=== PATIENT | female | born 1990 | race Caucasian/White ===

== ENCOUNTER 2023-03-24 09:31 | Outpatient (CLI) | payer BC, SELFPAY | END 2023-03-24 09:32 | disposition home or self-care (01) | PROVIDERS: PCP Physician Assistant Medical; Visit Provider Physician Assistant Medical | DX: R74.01 Elevation of levels of liver transaminase levels (principal); G89.29 Other chronic pain; M54.41 Lumbago with sciatica, right side | CPT/HCPCS: 80053; 86039; 86140; 86200; 86431; 86703; 86803; 86812 ==

== ENCOUNTER 2023-04-05 07:02 | Outpatient (CLI) | payer BC, SELFPAY ==
--- NOTE | 2023-04-05 07:15 | CRLHL7_ITS ---
For Patients: As a result of the Century Cures Act, medical imaging exams and procedure reports are released immediately into your electronic medical record. You may view this report before your referring provider. If you have questions, please contact your health care provider. INDICATION: Lumbago. Left-sided sciatica. TECHNIQUE: Multiplanar multisequence noncontrast MR images acquired through the lumbar spine. COMPARISON: None. FINDINGS: The lumbar lordosis is preserved. Vertebral heights maintained. No acute fracture or spondylolisthesis. No T1 hypointense marrow replacing lesions or marrow edema. Normal conus terminates at L2. T12-L1 through L3-4: No spinal canal or neural foraminal narrowing. L4-5: Mild disc degeneration. Shallow right eccentric disc bulging. Minimal facet arthropathy. No spinal canal or neural foraminal narrowing. L5-S1: Moderate disc degeneration. Posterior disc bulge with superimposed shallow, broad-based central disc protrusion measuring 3 mm in short axis with dorsal annular fissure. Mild facet arthropathy. No spinal canal or neural foraminal narrowing. Small T2 hyperintense lesions within the kidneys, most typical for renal cysts. IMPRESSION: 1. Mild multilevel lumbar spondylosis without spinal canal or neural foraminal stenosis. 2. At L5-S1, shallow broad-based central disc protrusion with dorsal annular fissure. Mild facet arthropathy. Dictated by Irineo Darby MD @ 04/05/2023 8:34:12 AM (Electronically Signed)
== END 2023-04-05 07:03 | disposition home or self-care (01) ==
LOC: MRI 07:02
PROVIDERS: PCP Physician Assistant Medical; Visit Provider Physician Assistant Medical
DX: M54.42 Lumbago with sciatica, left side (principal); M47.896 Other spondylosis, lumbar region; M51.27 Other intervertebral disc displacement, lumbosacral region
CPT/HCPCS: 72148

== ENCOUNTER 2023-04-22 11:25 | Outpatient (CLI) | payer BC, SELFPAY | END 2023-04-22 11:26 | disposition home or self-care (01) | LOC: NFLDREF 04-23 16:06 | PROVIDERS: PCP Physician Assistant Medical; Referring Provider Physician Assistant Medical; Visit Provider Physician Assistant Medical | DX: R74.01 Elevation of levels of liver transaminase levels (principal) | CPT/HCPCS: 80076 ==

== ENCOUNTER 2023-04-29 15:33 | Outpatient (CLI) | payer BC, SELFPAY ==
--- NOTE | 2023-04-29 16:00 | CRLHL7_ITS ---
For Patients: As a result of the Century Cures Act, medical imaging exams and procedure reports are released immediately into your electronic medical record. You may view this report before your referring provider. If you have questions, please contact your health care provider. INDICATION: Renal cysts on an outside MRI. TECHNIQUE: Renal and urinary bladder ultrasound. FINDINGS: Normal sized kidneys with the right measuring 10.8 x 3.9 x 5.7 cm. The left kidney measures 12.2 x 5.9 x 5.6 cm. The right renal cortex measures 1.9 cm and the left renal cortex 2.2 cm. Within the mid lateral right kidney there is a 2.2 x 1.8 x 2.0 cm complex cyst with either a septation or proteinaceous debris. This does not appear solid. Within the mid outer left kidney there is a 7 x 7 x 8 mm simple cyst. The urinary bladder is unremarkable. IMPRESSION: 1. Small complex cyst mid lateral right kidney with a septation and presumed proteinaceous debris. 2. Simple less than 1 cm cyst lateral left kidney. Dictated by Lux Rodriguez MD @ 04/30/2023 10:14:49 AM (Electronically Signed)
== END 2023-04-29 15:34 | disposition home or self-care (01) ==
LOC: US 15:34
PROVIDERS: PCP Physician Assistant Medical; Visit Provider Physician Assistant Medical
DX: N28.9 Disorder of kidney and ureter, unspecified (principal); N28.1 Cyst of kidney, acquired
CPT/HCPCS: 76775